=== PATIENT | female | born 1995 | race Caucasian/White ===

== ENCOUNTER → 2016-10-28 | Outpatient (CLI) | payer OTHER ==
[~2016-10-28] MED LIST: ACET50TA PO; IBUP80TA PO; VITAPRTA PO
[2016-10-28 13:28] LABS: BASO # 0.1 K/mm3 (0.0-0.2); BASO % 0.8 % (0.0-1.0); EOS # 0.1 K/mm3 (0.0-0.50); EOS % 1.8 % (0.0-3.0); LARGE UNSTAINED CELL # 0.1 K/mm3 (0.0-0.4); LARGE UNSTAINED CELL % 1.4 % (0.0-4.0); LYMPH # 1.8 K/mm3 (1.5-6.5); LYMPH % 22.1 % (24.0-44.0); MEAN CORPUSCULAR HEMOGLOBIN 29.2 pg (27.0-33.0); MEAN CORPUSCULAR HGB CONC 33.2 g/dl (32.0-36.5); MEAN CORPUSCULAR VOLUME 87.7 fl (80.0-96.0); MONO # 0.4 K/mm3 (0.0-0.8); MONO % 4.9 % (0.0-5.0); NEUTROPHILS # 5.5 K/mm3 (1.8-7.7); PLATELET COUNT, AUTOMATED 339 k/mm3 (150-450); RED CELL DISTRIBUTION WIDTH 12.9 % (11.5-14.5); WHITE BLOOD COUNT 7.9 K/mm3 (4.0-10.0)
[2016-10-28 14:04] LABS: HBsAg Prenatal NEGATIVE (NEGATIVE)
[2016-10-29 15:23] LABS: CONTROL LINE INT CTR LINE PRESENT; HIV SCRN NEGATIVE (NEGATIVE); HIV SCRN1 NEGATIVE (NEGATIVE)
== END ==
LOC: M SMT 09:15
PROVIDERS: ATTEND Advanced Practice Midwife
DX: Z34.81 Encounter for supervision of other normal pregnancy, first trimester (principal)

== ENCOUNTER → 2017-01-19 | Outpatient (CLI) | payer OTHER ==
--- NOTE | 2017-01-19 16:15 | REP ---
OB ULTRASOUND: Real-time sonographic evaluation of the gravid uterus is performed. There is a single living intrauterine gestation. The estimated gestational age is 18 weeks 6 days. EDC 06/16/2017. BPD 44 mm = 19 weeks 2 days HC 162 mm = 19 weeks 0 days AC 132 mm = 18 weeks 5 day Femur length 29 mm = 19 weeks 0 days HC/AC ratio 1.23 within normal range of 1.07-1.26. Estimated weight 263 grams at the 48th percentile. Cervix is closed and measures 3.2 cm in length. heart rate 139 beats per minute. SEEN/GROSSLY UNREMARKABLE Lateral ventricles Yes Posterior fossa Yes Upper lip Yes Four-chamber heart Yes LVOT Yes RVOT Yes Stomach Yes Cord insertion Yes Three vessel cord Yes Kidneys Yes Bladder Yes Spine Yes position: Vertex Placenta: Anterior and grade 0 with no previa or abruption. Amniotic fluid: Within normal limits. Signed by Barron Gomez MD 01/19/2017 04:25 P
== END ==
LOC: M SMT 12:53
PROVIDERS: ATTEND Advanced Practice Midwife
DX: Z34.82 Encounter for supervision of other normal pregnancy, second trimester (principal); Z36 Encounter for antenatal screening of mother; Z3A.18 18 weeks gestation of pregnancy

== ENCOUNTER → 2017-03-10 | Outpatient (CLI) | payer OTHER ==
[2017-03-10 13:19] LABS: MEAN CORPUSCULAR HEMOGLOBIN 30.2 pg (27.0-33.0); MEAN CORPUSCULAR HGB CONC 32.9 g/dl (32.0-36.5); MEAN CORPUSCULAR VOLUME 91.9 fl (80.0-96.0); RED CELL DISTRIBUTION WIDTH 12.7 % (11.5-14.5); WHITE BLOOD COUNT 11.4 K/mm3 (4.0-10.0)
== END ==
LOC: M SMT 11:14
PROVIDERS: ATTEND Advanced Practice Midwife
DX: Z34.82 Encounter for supervision of other normal pregnancy, second trimester (principal); Z36 Encounter for antenatal screening of mother

== ENCOUNTER → 2017-05-07 | Outpatient (CLI) | payer OTHER ==
[~2017-05-07] MED LIST changes: +COLA100C5 PO; +IBUP-1114 PO; +PRENTAB9 PO
--- NOTE | 2017-05-07 09:58 | REP ---
Abdominal right upper quadrant ultrasound: The patient is 34 weeks . Study is performed. Right upper quadrant abdominal pain. There is a negative Cool's sign to transducer pressure. heart rate is 133 beats per minute. There is no cholelithiasis, gallbladder wall thickening or pericholecystic fluid. There is no intrahepatic or extrahepatic biliary duct dilatation, the common duct is 3.4 mm in diameter. The hepatic parenchyma is homogeneous and unremarkable. The visualized portion of the pancreatic head is unremarkable. The body and tail are obscured by bowel gas. There is no right renal hydronephrosis, calculus, mass or cyst. The right kidney is normal size measuring 13.1 cm craniocaudad length. Impression: Essentially negative abdominal right upper quadrant ultrasound. Signed by Barron Mcguire MD 05/07/2017 09:50 A
[2017-05-07 13:34] LABS: MEAN CORPUSCULAR HEMOGLOBIN 28.3 pg (27.0-33.0); MEAN CORPUSCULAR HGB CONC 32.5 g/dl (32.0-36.5); MEAN CORPUSCULAR VOLUME 87.1 fl (80.0-96.0); RED CELL DISTRIBUTION WIDTH 13.5 % (11.5-14.5); WHITE BLOOD COUNT 9.4 K/mm3 (4.0-10.0)
[2017-05-07 13:48] LABS: ALBUMIN 2.7 GM/DL (3.2-5.2); ALBUMIN/GLOBULIN RATIO 0.71 (1.00-1.93); BILIRUBIN,DIRECT 0.1 MG/DL (0.0-0.2); BILIRUBIN,TOTAL 0.7 MG/DL (0.2-1.0); TOTAL PROTEIN 6.5 GM/DL (6.4-8.2)
== END ==
LOC: M SMT 08:49
PROVIDERS: ATTEND Advanced Practice Midwife
DX: O26.893 Other specified pregnancy related conditions, third trimester (principal); Z3A.34 34 weeks gestation of pregnancy; R10.11 Right upper quadrant pain

== ENCOUNTER → 2017-05-19 | Outpatient (REF) | payer OTHER | LOC: M LAB REF 13:14 | PROVIDERS: ATTEND Advanced Practice Midwife | DX: Z34.83 Encounter for supervision of other normal pregnancy, third trimester (principal); Z36 Encounter for antenatal screening of mother ==

== ENCOUNTER 2017-06-10 20:21 | Inpatient (IN) | payer OTHER ==
[2017-06-10] VITALS (7 sets, daily range): BP systolic 116–131; BP diastolic 58–82
[~2017-06-10] VITALS: Ht 157.5 cm; Wt 84.0 kg
[~2017-06-10 20:21] MED LIST changes: -COLA100C5 PO; -IBUP-1114 PO; -PRENTAB9 PO
[2017-06-10 21:26] LABS: MEAN CORPUSCULAR HEMOGLOBIN 26.5 pg (27.0-33.0); MEAN CORPUSCULAR HGB CONC 31.9 g/dl (32.0-36.5); MEAN CORPUSCULAR VOLUME 83.1 fl (80.0-96.0); RED CELL DISTRIBUTION WIDTH 14.5 % (11.5-14.5); WHITE BLOOD COUNT 12.4 K/mm3 (4.0-10.0)
[2017-06-10] MEDS ORDERED: LR 1,000 ML IV SCH (22:20)
[2017-06-10] MEDS ORDERED: OXYTOCIN DRIP 30 UNITS in APPROPRIATE DILUENT 1 EA IV SCH (22:30)
[2017-06-10] MEDS ORDERED: BUTORPHANOL 2 MG/ML INJ (J0595) IV ONE (23:45)
[2017-06-10] MEDS ORDERED: PROMETHAZINE INJ 25 MG/ML VIAL (J2550) IV ONE (23:45)
[2017-06-11] VITALS (10 sets, daily range): BP systolic 94–139; BP diastolic 51–92
[2017-06-11] MEDS ORDERED: OXYTOCIN DRIP 30 UNITS in APPROPRIATE DILUENT 1 EA IV SCH (02:32)
[2017-06-11] MEDS ORDERED: ACETAMINOPHEN 500 MG TAB PO PRN (02:45)
[2017-06-11] MEDS ORDERED: DIBUCAINE 1% OINTMENT 30GM TOP PRN (02:45)
[2017-06-11] MEDS ORDERED: DOCUSATE SODIUM 100 MG CAP PO PRN (02:45)
[2017-06-11] MEDS ORDERED: MEASLES,MUMPS,RUBELLA VACCINE INJ (MMR-II) (90707) SC SCH (02:45)
[2017-06-11] MEDS ORDERED: IBUPROFEN 800 MG TAB PO PRN (02:45)
[2017-06-11] MEDS ORDERED: RHOGAM 300 MCG (1500 IU) INJ (J2790) IM SCH (02:45)
[2017-06-11] MEDS ORDERED: MOM 30ML SUSPENSION UDC PO PRN (02:45)
[2017-06-11] MEDS ORDERED: METHYLERGONOVINE MALEATE 0.2 MG TAB PO PRN (02:45)
[2017-06-11] MEDS ORDERED: ANUSOL HC CREAM 30GM TOP PRN (02:45)
[2017-06-11] MEDS: PRENATAL VITAMINS CHEWABLE TABLET PO SCH (09:00)
[2017-06-12 06:43] VITALS: BP 116/73
[2017-06-12] MEDS: PRENATAL VITAMINS CHEWABLE TABLET PO SCH (09:00)
[2017-06-12] MEDS ORDERED: IBUP-1114 PO (12:41)
[2017-06-12] MEDS ORDERED: ACET50TA PO (12:41)
[2017-06-12] MEDS ORDERED: COLA100C5 PO (12:41)
[2017-06-12] MEDS ORDERED: PRENTAB9 PO (12:41)
== END 2017-06-12 15:05 | disposition home or self-care (01) | DRG 560 ==
LOC: M LDI 20:21 → M OBS 06-11 04:15
PROVIDERS: ADMIT Obstetrics & Gynecology; ATTEND Obstetrics & Gynecology
PROC: 10E0XZZ Delivery of Products of Conception, External Approach (ICD-10-PCS; principal; 2017-06-11)
DX: O42.02 Full-term premature rupture of membranes, onset of labor within 24 hours of rupture (principal); Z37.0 Single live birth; Z3A.39 39 weeks gestation of pregnancy

== ENCOUNTER → 2017-09-23 | Outpatient (REF) | payer OTHER ==
[~2017-09-23] MED LIST changes: +COLA100C5 PO; +IBUP-1114 PO; +PRENTAB9 PO
== END ==
LOC: M LAB REF 18:42
PROVIDERS: ATTEND Obstetrics & Gynecology
DX: Z12.4 Encounter for screening for malignant neoplasm of cervix (principal)

== ENCOUNTER → 2018-12-15 | Outpatient (REF) | payer OTHER ==
[~2018-12-15] MED LIST changes: -ACET50TA PO; +CIPR-249 PO; +MAPA500T2 PO; +PYRI1TAB5 PO
== END ==
LOC: M LAB REF 12:26 → MERGE 12:26
PROVIDERS: ATTEND Physician Assistant
DX: J02.9 Acute pharyngitis, unspecified (principal)

== ENCOUNTER 2018-12-17 21:28 | Emergency (ER) | payer OTHER ==
[~2018-12-17] VITALS: Ht 157.5 cm; Wt 61.4 kg
[2018-12-17 21:28] VITALS: BP 126/67
[~2018-12-17 21:28] MED LIST changes: -CIPR-249 PO; -PYRI1TAB5 PO
[2018-12-17 21:56] LABS: URINE PREG TEST NEGATIVE (NEGATIVE)
[2018-12-17 22:01] LABS: APPEARANCE, URINE MANUAL TURBID (CLEAR); COLOR, URINE MANUAL BROWN (YELLOW)
[2018-12-17 22:07] LABS: BILIRUBIN, URINE MANUAL NEGATIVE (NEGATIVE); BLOOD URINE MANUAL POSITIVE (NEGATIVE); GLUCOSE, URINE (UA) MANUAL NEGATIVE (NEGATIVE); KETONE, URINE MANUAL NEGATIVE (NEGATIVE); LEUKOCYTE ESTERASE, URINE MAN POSITIVE (NEGATIVE); NITRITE, URINE MANUAL POSITIVE (NEGATIVE); PH,URINE MAN 5.5 UNITS (5.0 - 7.0); PROTEIN, URINE MANUAL 3+ mg/dL (NEGATIVE); UROBILINOGEN, URINE MANUAL NORMAL (NORMAL)
[2018-12-17 22:10] LABS: BACTERIA, URINE LARGE AMOUNT; HYALINE CAST, URINE NONE SEEN /lpf (0-1); MUCUS, URINE SMALL AMOUNT (NEGATIVE); RBC, URINE TNTC /hpf (0-3); SQUAMOUS EPITHELIAL CELL URINE LARGE AMOUNT /hpf (SMALL AMT); TRANSITIONAL EPI CELLS, URINE MOD AMOUNT /hpf; WBC, URINE TNTC /hpf (0-3)
[2018-12-17] MEDS ORDERED: PYRI1TAB5 PO (22:40)
[2018-12-17] MEDS ORDERED: CIPR-249 PO (22:40)
[2018-12-17] MEDS ORDERED: PHENAZOPYRIDINE 100 MG TAB PO ONE (22:45)
[2018-12-17] MEDS ORDERED: CIPROFLOXACIN 500 MG TAB PO ONE (22:45)
== END 2018-12-17 22:58 | disposition home or self-care (01) ==
LOC: M ED 21:28 → MERGE 21:28 → M ED 22:58
DX: N30.00 Acute cystitis without hematuria (principal)

== ENCOUNTER → 2019-10-27 | Outpatient (REF) | payer OTHER ==
[~2019-10-27] MED LIST changes: +CIPR-249 PO; +PYRI1TAB5 PO
== END ==
LOC: M LABDRWAD 19:14 → M LAB REF 19:14
PROVIDERS: ATTEND Nurse Practitioner Family
DX: N39.0 Urinary tract infection, site not specified (principal)

== ENCOUNTER → 2020-03-13 | Outpatient (REF) | payer OTHER | LOC: M SFHCADAM 17:06 | PROVIDERS: ATTEND Family Medicine | DX: N39.0 Urinary tract infection, site not specified (principal) ==

== ENCOUNTER → 2020-10-24 | Outpatient (REF) | payer OTHER | LOC: M SFHCWAGY 18:26 | PROVIDERS: ATTEND Advanced Practice Midwife | DX: Z12.4 Encounter for screening for malignant neoplasm of cervix (principal) ==

== ENCOUNTER → 2021-04-17 | Outpatient (CLI) | payer OTHER ==
--- NOTE | 2021-04-17 16:55 | REP ---
INDICATION: IUD CHECK. COMPARISON: None. TECHNIQUE: Transabdominal and transvaginal scanning performed. FINDINGS: Uterine dimensions are 9.0 x 3.6 x 5.1 cm. Endometrial echo is 8 mm in AP dimension and centrally placed. IUD is seen within the endometrial canal. The bladder measures 10.8 x 9.8 x 7.4cm. The right ovary has dimensions of 3.0 x 2.0 x 3.0 cm. It's Doppler flow is normal with a resistive index of 0.42. The left ovary dimensions are 2.9 x 2.0 x 2.0 cm. It's Doppler flow was normal with resistive index of 0.47. There is no adnexal mass identified. No free fluid is seen in the cul-de-sac. IMPRESSION: IUD within the endometrial canal. Otherwise negative pelvic ultrasound. <Electronically signed by Barron Gomez > 04/17/21 [id number]
== END ==
LOC: M RAD 15:14
PROVIDERS: ATTEND Advanced Practice Midwife
DX: Z97.5 Presence of (intrauterine) contraceptive device (principal)

== ENCOUNTER 2021-10-18 21:13 | Emergency (ER) | payer OTHER ==
[~2021-10-18] VITALS: Ht 157.5 cm; Wt 78.5 kg
[2021-10-19] MEDS ORDERED: AUGMENTIN 875 MG TAB PO ONE (00:05)
[2021-10-19] MEDS ORDERED: BOOSTRIX/ADACEL VACCINE (DIPHTH/PERTUSS/ACELL/TETANUS) 0.5ML SYR IM ONE (00:15)
[2021-10-19] MEDS ORDERED: LIDOCAINE 2% MDV 20ML VIAL SC ONE (00:45)
[2021-10-19] MEDS ORDERED: AUGM875T28 PO (01:13)
[2021-10-19 01:29] VITALS: BP 124/80
== END 2021-10-19 01:37 | disposition home or self-care (01) ==
LOC: M ED 21:13
DX: S61.042A Puncture wound with foreign body of left thumb without damage to nail, initial encounter (principal); S60.511A Abrasion of right hand, initial encounter; W55.89XA Other contact with other mammals, initial encounter; Y92.018 Other place in single-family (private) house as the place of occurrence of the external cause

== ENCOUNTER → 2021-10-24 | Outpatient (CLI) | payer OTHER ==
[~2021-10-24] MED LIST changes: +AUGM875T28 PO
== END ==
LOC: M LABSMTC 10:11
PROVIDERS: ATTEND Anesthesiology
DX: Z01.812 Encounter for preprocedural laboratory examination (principal); Z20.822 Contact with and (suspected) exposure to COVID-19

== ENCOUNTER 2021-10-29 10:51 | Day surgery (SDC) | payer OTHER ==
[~2021-10-29] VITALS: Ht 157.5 cm; Wt 77.3 kg
[~2021-10-29 10:51] MED LIST changes: +LR 1,000 ML IV ONE; +ceFAZolin SOD 2 GM in IV 1 EA IV ONE
[2021-10-29] MEDS ORDERED: ONDANSETRON 4MG/2ML VIAL As Ordered ONE (11:17)
[2021-10-29] MEDS ORDERED: LIDOCAINE 2% 100MG/5ML SDV (FOR ANES.) As Ordered ONE (11:17)
[2021-10-29] MEDS ORDERED: KETOROLAC 60MG 2ML VIAL As Ordered ONE (11:17)
[2021-10-29] MEDS ORDERED: dexameTHASONE 4 MG/ML 1ML VIAL (J1100 PER 1MG) As Ordered ONE (11:17)
[2021-10-29] MEDS ORDERED: propofoL 500 MG/50 ML VIAL As Ordered ONE (11:18)
[2021-10-29] MEDS ORDERED: fentaNYL 100 MCG/2 ML INJECTION As Ordered ONE (11:18)
[2021-10-29] MEDS ORDERED: MIDAZOLAM INJ 2MG/2ML VIAL (J2250 PER 1MG) As Ordered ONE (11:18)
[2021-10-29] MEDS ORDERED: BUPIVACAINE HCL 0.25% 30ML VIAL As Ordered ONE (13:06)
[2021-10-29] MEDS ORDERED: BACITRACIN OINTMENT 30GM TUBE As Ordered ONE (13:34)
[2021-10-29 14:38] VITALS: BP 124/72
== END 2021-10-29 14:38 | disposition home or self-care (01) ==
LOC: M SDC 10:51
PROVIDERS: ATTEND Orthopaedic Surgery Hand Surgery
DX: S61.052A Open bite of left thumb without damage to nail, initial encounter (principal); S60.352A Superficial foreign body of left thumb, initial encounter; W54.0XXA Bitten by dog, initial encounter; Y92.098 Other place in other non-institutional residence as the place of occurrence of the external cause; Y93.K9 Activity, other involving animal care; Y99.8 Other external cause status; Z79.2 Long term (current) use of antibiotics
CPT/HCPCS: 10121; 76000; 81025; 88300; J0690; J1100; J1885; J2250; J2405; J3010

== ENCOUNTER → 2021-12-26 | Outpatient (REF) | payer OTHER ==
[~2021-12-26] MED LIST changes: -LR 1,000 ML IV ONE; -ceFAZolin SOD 2 GM in IV 1 EA IV ONE
[2021-12-26 14:59] LABS: GC DNA AMPLIFICATION NEGATIVE (NEGATIVE)
== END ==
LOC: M SFHCWAGY 12:51
PROVIDERS: ATTEND Obstetrics & Gynecology
DX: B96.89 Other specified bacterial agents as the cause of diseases classified elsewhere (principal)

== ENCOUNTER 2022-01-23 10:31 | Day surgery (SDC) | payer OTHER ==
[~2022-01-23] VITALS: Ht 157.5 cm; Wt 77.1 kg
[~2022-01-23 10:31] MED LIST changes: +IUD; +NS 1,000 ML IV ONE
[2022-01-23] MEDS ORDERED: LIDOCAINE 2% 100MG/5ML SDV (FOR ANES.) As Ordered ONE (12:41)
[2022-01-23] MEDS ORDERED: propofoL 200 MG/20 ML VIAL As Ordered ONE (12:41)
[2022-01-23 13:21] VITALS: BP 115/69
== END 2022-01-23 13:21 | disposition home or self-care (01) ==
LOC: M OPP 10:31
PROVIDERS: ATTEND Internal Medicine Gastroenterology
DX: Z12.11 Encounter for screening for malignant neoplasm of colon (principal); Z80.0 Family history of malignant neoplasm of digestive organs

== ENCOUNTER → 2022-03-30 | Outpatient (REF) | payer OTHER ==
[~2022-03-30] MED LIST changes: -NS 1,000 ML IV ONE
[2022-03-30 21:29] LABS: APPEARANCE, URINE HAZY (CLEAR); BACTERIA, URINE AUTO NEGATIVE (NEGATIVE); BILIRUBIN, URINE AUTO NEGATIVE (NEGATIVE); BLOOD, URINE BLOOD 1+ (NEGATIVE); COLOR, URINE YELLOW (YELLOW); GLUCOSE, URINE (UA) AUTO NEGATIVE (NEGATIVE); KETONE, URINE AUTO NEGATIVE (NEGATIVE); LEUKOCYTE ESTERASE, URINE AUTO 1+ (NEGATIVE); MUCUS, URINE SMALL (NEGATIVE); NITRITE, URINE AUTO NEGATIVE (NEGATIVE); PROTEIN, URINE AUTO NEGATIVE (NEGATIVE); RBC, URINE AUTO 1 /HPF (0-3); SPECIFIC GRAVITY URINE AUTO 1.012 (1.002-1.035); SQUAMOUS EPITHELIAL CELL UR AU 3 /HPF (0-6); UROBILINOGEN, URINE AUTO 0.2 mg/dL (0.0-2.0); WBC, URINE AUTO 34 /HPF (0-3)
== END ==
LOC: M LAB REF 21:08
PROVIDERS: ATTEND Physician Assistant Medical
DX: N39.0 Urinary tract infection, site not specified (principal)

== ENCOUNTER → 2022-08-22 | Outpatient (REF) | payer OTHER ==
[2022-08-22 18:23] LABS: APPEARANCE, URINE MANUAL HAZY (CLEAR); COLOR, URINE MANUAL ORANGE (YELLOW); GLUCOSE, URINE (UA) MANUAL OBSCURED mg/dL (NEGATIVE); PH,URINE MAN OBSCURED UNITS (5.0 - 7.0); PROTEIN, URINE MANUAL OBSCURED mg/dL (NEGATIVE); SPECIFIC GRAVITY,URINE MANUAL 1.017 (1.002-1.035)
[2022-08-22 18:24] LABS: BILIRUBIN, URINE MANUAL OBSCURED (NEGATIVE); BLOOD URINE MANUAL OBSCURED (NEGATIVE); KETONE, URINE MANUAL OBSCURED mg/dL (NEGATIVE); LEUKOCYTE ESTERASE, URINE MAN OBSCURED (NEGATIVE); NITRITE, URINE MANUAL OBSCURED (NEGATIVE); UROBILINOGEN, URINE MANUAL OBSCURED mg/dl (NORMAL)
[2022-08-22 18:44] LABS: BACTERIA, URINE LARGE AMOUNT; SQUAMOUS EPITHELIAL CELL URINE LARGE AMOUNT /hpf (SMALL AMT); WBC, URINE 40-50 /hpf (0-3)
[2022-08-22 19:55] LABS: GC DNA AMPLIFICATION NEGATIVE (NEGATIVE)
== END ==
LOC: M LAB REF 18:00
PROVIDERS: ATTEND Physician Assistant Medical
DX: N39.0 Urinary tract infection, site not specified (principal); Z20.2 Contact with and (suspected) exposure to infections with a predominantly sexual mode of transmission

== ENCOUNTER → 2022-08-26 | Outpatient (CLI) | payer OTHER ==
[2022-08-26 20:15] LABS: HEMATOCRIT 37.3 % (36.0-47.0); HEMOGLOBIN 11.9 g/dl (12.0-15.5); MEAN CORPUSCULAR HEMOGLOBIN 29.3 pg (27.0-33.0); MEAN CORPUSCULAR HGB CONC 31.9 g/dl (32.0-36.5); MEAN CORPUSCULAR VOLUME 91.9 fl (80.0-96.0); PLATELET COUNT, AUTOMATED 310 10^3/uL (150-450); RED BLOOD COUNT 4.06 10^6/uL (4.00-5.40); WHITE BLOOD COUNT 11.3 10^3/uL (4.0-10.0)
[2022-08-26 22:03] LABS: HIV 1&2 SCREEN CENTAUR NEGATIVE (NEGATIVE)
[2022-08-26 22:09] LABS: HEPATITIS C VIRUS ABY INDEX 0.1 INDEX (<0.8)
[2022-08-26 23:08] LABS: GC DNA AMPLIFICATION NEGATIVE (NEGATIVE)
== END ==
LOC: M PLALAB 16:21
PROVIDERS: ATTEND Advanced Practice Midwife
DX: Z34.91 Encounter for supervision of normal pregnancy, unspecified, first trimester (principal); Z82.8 Family history of other disabilities and chronic diseases leading to disablement, not elsewhere classified

== ENCOUNTER → 2022-10-13 | Outpatient (CLI) | payer OTHER | LOC: M WHC 13:08 | PROVIDERS: ATTEND Advanced Practice Midwife | DX: O46.90 Antepartum hemorrhage, unspecified, unspecified trimester (principal); Z3A.19 19 weeks gestation of pregnancy ==

== ENCOUNTER → 2022-11-04 | Outpatient (CLI) | payer OTHER | LOC: M WHC 15:28 | PROVIDERS: ATTEND Advanced Practice Midwife | DX: O41.8X20 Other specified disorders of amniotic fluid and membranes, second trimester, not applicable or unspecified (principal); Z3A.22 22 weeks gestation of pregnancy ==

== ENCOUNTER → 2022-11-18 | Outpatient (REF) | payer OTHER | LOC: M SFHCADAM 12:43 | PROVIDERS: ATTEND Family Medicine | DX: R09.89 Other specified symptoms and signs involving the circulatory and respiratory systems (principal) ==

== ENCOUNTER → 2022-11-19 | Outpatient (CLI) | payer OTHER | LOC: M WHC 15:05 | PROVIDERS: ATTEND Advanced Practice Midwife | DX: O41.8X20 Other specified disorders of amniotic fluid and membranes, second trimester, not applicable or unspecified (principal); Z3A.24 24 weeks gestation of pregnancy ==

== ENCOUNTER → 2022-11-25 | Outpatient (REF) | payer OTHER ==
[2022-11-25 21:10] LABS: APPEARANCE, URINE CLOUDY (CLEAR); BILIRUBIN, URINE AUTO NEGATIVE (NEGATIVE); BLOOD, URINE BLOOD 3+ (NEGATIVE); COLOR, URINE AMBER (YELLOW); GLUCOSE, URINE (UA) AUTO 1+ mg/dL (NEGATIVE); KETONE, URINE AUTO NEGATIVE (NEGATIVE); LEUKOCYTE ESTERASE, URINE AUTO 3+ (NEGATIVE); NITRITE, URINE AUTO POSITIVE (NEGATIVE); PROTEIN, URINE AUTO 2+ mg/dL (NEGATIVE); SPECIFIC GRAVITY URINE AUTO 1.025 (1.002-1.035)
[2022-11-25 21:17] LABS: BACTERIA, URINE AUTO 2+ (NEGATIVE); CALCIUM OXALATE CRYSTALS SMALL; MUCUS, URINE SMALL (NEGATIVE); RBC, URINE AUTO 180 /HPF (0-3); SQUAMOUS EPITHELIAL CELL UR AU 4 /HPF (0-6); WBC, URINE AUTO TNTC /HPF (0-3)
== END ==
LOC: M LAB REF 20:45
PROVIDERS: ATTEND Physician Assistant
DX: N39.0 Urinary tract infection, site not specified (principal)

== ENCOUNTER → 2022-12-10 | Outpatient (CLI) | payer OTHER | LOC: M WHC 09:08 | PROVIDERS: ATTEND Advanced Practice Midwife | DX: O41.8X20 Other specified disorders of amniotic fluid and membranes, second trimester, not applicable or unspecified (principal); Z3A.27 27 weeks gestation of pregnancy ==

== ENCOUNTER → 2022-12-10 | Outpatient (CLI) | payer OTHER ==
[2022-12-10 14:38] LABS: HEMATOCRIT 35.7 % (36.0-47.0); HEMOGLOBIN 11.2 g/dl (12.0-15.5); MEAN CORPUSCULAR HEMOGLOBIN 28.6 pg (27.0-33.0); MEAN CORPUSCULAR HGB CONC 31.4 g/dl (32.0-36.5); MEAN CORPUSCULAR VOLUME 91.1 fl (80.0-96.0); PLATELET COUNT, AUTOMATED 215 10^3/uL (150-450); RED BLOOD COUNT 3.92 10^6/uL (4.00-5.40); WHITE BLOOD COUNT 13.2 10^3/uL (4.0-10.0)
[2022-12-10 16:21] LABS: GC DNA AMPLIFICATION NEGATIVE (NEGATIVE)
== END ==
LOC: M PLALAB 09:32
PROVIDERS: ATTEND Obstetrics & Gynecology
DX: Z34.92 Encounter for supervision of normal pregnancy, unspecified, second trimester (principal)

== ENCOUNTER → 2023-02-10 | Outpatient (REF) | payer OTHER, MEDICARE | LOC: M SFHCWAGY 17:31 | PROVIDERS: ATTEND Specialist | DX: Z34.83 Encounter for supervision of other normal pregnancy, third trimester (principal) ==

== ENCOUNTER 2023-02-22 17:55 | Outpatient (CLI) | payer BC, OTHER ==
[~2023-02-22] VITALS: Ht 157.5 cm; Wt 100.4 kg
[2023-02-22 18:26] VITALS: BP 122/77
[2023-02-22] MEDS ORDERED: HOME MED LIST COMPLETE! XX SCH (18:35)
== END 2023-02-22 21:25 | disposition home or self-care (01) ==
LOC: M LDO 17:55
PROVIDERS: ATTEND Advanced Practice Midwife
DX: O47.1 False labor at or after 37 completed weeks of gestation (principal); O72.1 Other immediate postpartum hemorrhage; Z3A.37 37 weeks gestation of pregnancy
CPT/HCPCS: 59025; G0463

== ENCOUNTER 2023-02-23 23:11 | Inpatient (IN) | payer BC ==
[~2023-02-23] VITALS: Ht 157.5 cm; Wt 99.9 kg
[2023-02-23 23:30] VITALS: BP 129/81
[2023-02-23] MEDS ORDERED: HOME MED LIST COMPLETE! XX SCH (23:35)
[2023-02-24] VITALS (44 sets, daily range): BP systolic 104–171; BP diastolic 56–91
[2023-02-24] MEDS ORDERED: OXYTOCIN DRIP 30 UNITS in IV 1 EA IV PRN (00:10)
[2023-02-24] MEDS ORDERED: LIDOCAINE 1% MDV 20ML VIAL INFIL PRN (00:10)
[2023-02-24] MEDS ORDERED: OXYTOCIN DRIP 30 UNITS in IV 1 EA IV SCH ×2 (00:20→11:25)
[2023-02-24 00:37] LABS: HEMATOCRIT 33.3 % (36.0-47.0); HEMOGLOBIN 10.8 g/dl (12.0-15.5); MEAN CORPUSCULAR HEMOGLOBIN 28.5 pg (27.0-33.0); MEAN CORPUSCULAR HGB CONC 32.4 g/dl (32.0-36.5); MEAN CORPUSCULAR VOLUME 87.9 fl (80.0-96.0); PLATELET COUNT, AUTOMATED 255 10^3/uL (150-450); RED BLOOD COUNT 3.79 10^6/uL (4.00-5.40); WHITE BLOOD COUNT 16.5 10^3/uL (4.0-10.0)
[2023-02-24] MEDS ORDERED: NALBUPHINE HCL 10 MG/ML 1ML AMP IV ONE (01:00)
[2023-02-24] MEDS ORDERED: PROMETHAZINE 25MG/ML 1ML VIAL IV ONE (01:00)
[2023-02-24] MEDS: LR 1,000 ML IV SCH ×3 (01:18→06:43)
[2023-02-24] MEDS ORDERED: FENTANYL/ROPIVACAINE/NACL BAG 100 ML EPIDURAL SCH (04:10)
[2023-02-24] MEDS ORDERED: NALOXONE INJ 0.4MG/1ML VIAL IV PRN (04:10)
[2023-02-24] MEDS ORDERED: EPIDURAL/PCA KEYS XX PRN (04:10)
[2023-02-24] MEDS ORDERED: ONDANSETRON 4MG 2ML VIAL IV PRN (04:10)
[2023-02-24] MEDS ORDERED: diphenhydrAMINE 50MG/ML VIAL IV PRN (04:10)
[2023-02-24] MEDS ORDERED: LR 500 ML IV PRN (04:10)
[2023-02-24] MEDS ORDERED: ePHEDrine SULFATE 25 MG/5 ML(5MG/ML) SYRINGE IVP PRN (04:10)
[2023-02-24] MEDS ORDERED: FENTANYL 2MCG/ML ROPIVACAINE 0.2% IN 0.9% NACL 100ML IVBAG As Ordered ONE (04:22)
[2023-02-24 10:54] LABS: CORD GAS ABE A -12.1; CORD GAS ABE V -5.9; CORD GAS HCO3 A 20.9 MMOL/L; CORD GAS HCO3 V 18.8 MMOL/L; CORD GAS O2 SAT A 23.1 %; CORD GAS O2 SAT V 81.3 %; CORD GAS PCO2 A 85.4 mmHg; CORD GAS PH A 7.007 UNITS; CORD GAS PH V 7.348 UNITS; CORD GAS PO2 A 17.7 mmHg; CORD GAS PO2 V 35.5 mmHg; CORD GAS SBC A 13.7 MMOL/L; CORD GAS SBC V 19.3 MMOL/L; CORD GAS TCO2 A 23.5 MMOL/L; CORD GAS TCO2 V 19.9 MMOL/L
[2023-02-24] MEDS ORDERED: METHYLERGONOVINE MALEATE 0.2MG/ML 1ML VIAL IM PRN (11:25)
[2023-02-24] MEDS ORDERED: RHOGAM 300MCG (1500IU) INJ IM SCH (11:25)
[2023-02-24] MEDS ORDERED: DIBUCAINE 1% OINTMENT 30GM TOP PRN (11:25)
[2023-02-24] MEDS ORDERED: ACETAMINOPHEN TAB 650MG DOSE (2X325MG) PO PRN (11:25)
[2023-02-24] MEDS ORDERED: DOCUSATE SODIUM 100MG CAPSULE PO PRN (11:25)
[2023-02-24] MEDS ORDERED: IBUPROFEN 600MG TAB PO PRN (11:25)
[2023-02-24] MEDS ORDERED: METHYLERGONOVINE MALEATE 0.2 MG TAB PO PRN (11:25)
[2023-02-24] MEDS: AMPICILLIN SOD 2 GM in D5W MINI-BAG PLUS 100 ML IV SCH ×2 (11:43→18:46)
[2023-02-24] MEDS: ACETAMINOPHEN 500 MG TAB PO PRN (11:45)
[2023-02-24] MEDS: IBUPROFEN 800 MG TAB PO PRN (11:46)
[2023-02-24] MEDS: GENTAMICIN 500 MG in D5W 100 ML IV SCH (12:45)
[2023-02-24] MEDS ORDERED: HOME MED LIST COMPLETE! XX SCH (13:35)
[2023-02-25] MEDS: AMPICILLIN SOD 2 GM in D5W MINI-BAG PLUS 100 ML IV SCH ×3 (00:05→12:08)
[2023-02-25 02:00] VITALS: BP 128/85
[2023-02-25 06:00] VITALS: BP 136/85
[2023-02-25] MEDS: IBUPROFEN 800 MG TAB PO PRN ×2 (06:20→16:09)
[2023-02-25] MEDS: PRENATAL VITAMINS CHEWABLE TABLET PO SCH (08:02)
[2023-02-25] MEDS ORDERED: GENTAMICIN 10 MG/ML 2ML VIAL*PRES.FREE IV SCH (09:00)
[2023-02-25 09:50] VITALS: BP 136/72
[2023-02-25] MEDS: GENTAMICIN 500 MG in D5W 100 ML IV SCH (12:53)
[2023-02-25 14:00] VITALS: BP 133/71
[2023-02-25 22:00] VITALS: BP 115/68
[2023-02-25] MEDS: ACETAMINOPHEN 500 MG TAB PO PRN (22:21)
[2023-02-26 02:00] VITALS: BP 137/79
[2023-02-26 06:00] VITALS: BP 133/69
[2023-02-26] MEDS ORDERED: MEASLES,MUMPS,RUBELLA VACCINE INJ (MMR-II) SC.IMMUN ONE (09:00)
[2023-02-26] MEDS: IBUPROFEN 800 MG TAB PO PRN (09:42)
[2023-02-26] MEDS: PRENATAL VITAMINS CHEWABLE TABLET PO SCH (09:42)
== END 2023-02-26 14:00 | disposition home or self-care (01) | DRG 560 ==
LOC: M LDO 23:11 → M LDI 23:46 → M OBS 02-24 13:40
PROVIDERS: ADMIT Specialist; ATTEND Specialist
PROC: 10E0XZZ Delivery of Products of Conception, External Approach (ICD-10-PCS; principal; 2023-02-24)
DX: O42.02 Full-term premature rupture of membranes, onset of labor within 24 hours of rupture (principal); Z37.0 Single live birth; Z3A.38 38 weeks gestation of pregnancy; O76 Abnormality in fetal heart rate and rhythm complicating labor and delivery; O69.82X0 Labor and delivery complicated by other cord entanglement, without compression, not applicable or unspecified; O43.899 Other placental disorders, unspecified trimester; O41.1230 Chorioamnionitis, third trimester, not applicable or unspecified

== ENCOUNTER → 2024-08-02 | Outpatient (REF) | payer MEDICARE | LOC: M PLALAB 08:13 | PROVIDERS: ATTEND Advanced Practice Midwife | DX: N89.8 Other specified noninflammatory disorders of vagina (principal) ==

== ENCOUNTER → 2025-08-28 | Outpatient (REF) | payer BC ==
[2025-08-28 18:24] LABS: ALT/SGPT 13 U/L (7.0-40); AST/SGOT 15 U/L (<34); BASO # 0.1 10^3/uL (0.0-0.2); BASO % 0.7 % (0.0-1.0); CALCIUM LEVEL 9.2 MG/DL (8.5-10.1); CARBON DIOXIDE LEVEL 28 MMOL/L (20-31); CHLORIDE LEVEL 101 MMOL/L (98-107); CREATININE FOR GFR 0.68 MG/DL (0.55-1.30); EOS # 0.1 10^3/uL (0.0-0.5); EOS % 1.1 % (0.0-3.0); FREE T4 1.06 NG/DL (0.89-1.76); GLOMERULAR FILTRATION RATE > 90.0 (>60); LYMPH # 3.1 10^3/uL (1.5-5.0); LYMPH % 29.6 % (24.0-44.0); MONO # 0.5 10^3/uL (0.0-0.8); MONO % 4.5 % (2.0-8.0); NEUTROPHILS # 6.6 10^3/uL (1.5-8.5); NEUTROPHILS % 63.8 % (36.0-66.0); PLATELET COUNT, AUTOMATED 403 10^3/uL (150-450); POTASSIUM SERUM 4.5 MMOL/L (3.5-5.1); SODIUM LEVEL 139 MMOL/L (136-145)
== END ==
LOC: M SFHCADAM 11:48
PROVIDERS: ATTEND Family Medicine
DX: Z00.00 Encounter for general adult medical examination without abnormal findings (principal); R41.3 Other amnesia